=== PATIENT | male | born 1980 | race Caucasian/White ===

== ENCOUNTER → 2020-02-27 | Outpatient (CLI) | payer OTHER | LOC: M LABSMTC 10:42 | PROVIDERS: ATTEND Pediatrics | DX: Z20.822 Contact with and (suspected) exposure to COVID-19 (principal) ==

== ENCOUNTER → 2020-03-22 | Outpatient (CLI) | payer OTHER ==
--- NOTE | 2020-03-23 18:07 | SLEEPCENT ---
NOCTURNAL POLYSOMNOGRAPHY DATE: 03/22/2020 ORDERED BY: DERRICK Michelle Nocturnal polysomnography was performed for evaluation of sleep physiology in this patient with a history of excessive somnolence and nonrestorative sleep. 8 hours and 29 minutes of data were reviewed. There were 457 minutes of sleep identified. Sleep latency was mildly prolonged at 20 minutes. REM latency more so prolonged at 272 minutes. Sleep architecture was fairly well preserved. There were two REM cycles noted. Overall sleep efficiency was 90.7%. The electrocardiogram showed a sinus rhythm with an average heart rate of 78 beats per minute, rate range 66 to 102. EEG showed reasonably normal waveforms for wake and sleep. There were 339 respiratory events identified of 10 seconds in duration or greater for an apnea-hypopnea index of 44.5. The events were primarily obstructive though 27 mixed and central apneas were seen. The events were not exclusive to sleep stage. They were more frequent, but not exclusive to the supine posture and arousals from respiratory events occurred 30.1 times per hour. Oxygen desaturations were seen into the 70s. There was some limb activity, but arousals from limb events were few. IMPRESSION: Severe obstructive sleep apnea syndrome (G47.33), apnea-hypopnea index of 44.5. RECOMMENDATION: The patient should be encouraged to return to [facility]. In the interim, alcohol and sedative avoidance should be practiced and caution exercised during the operation of motor vehicles.
== END ==
LOC: M SLEEP 20:00
PROVIDERS: ATTEND Nurse Practitioner Family
DX: R06.83 Snoring (principal)

== ENCOUNTER → 2020-04-15 | Outpatient (CLI) | payer OTHER ==
--- NOTE | 2020-04-17 13:32 | SLEEPCENT ---
NOCTURNAL POLYSOMNOGRAPHY CPAP TITRATION DATE: 04/15/2020 ORDERED BY: DERRICK Michelle Nocturnal polysomnography was performed for the titration of pressure therapy in this patient with severe obstructive sleep apnea syndrome with apnea-hypopnea index of 44.5. For testing a ResMed F20 full face mask of medium size was used, 4 cm of water pressure were applied to the circuit, and the lights were extinguished. 8 hours and 50 minutes of data were reviewed. There were 462.5 minutes of sleep identified. Sleep latency was prolonged at 34.5 minutes. REM latency was prolonged at 259 minutes. Sleep architecture improved with optimal pressure therapy. Two long REM cycles were noted. Overall sleep efficiency was 88.7%. The electrocardiogram showed a sinus rhythm with an average heart rate of 65 beats per minute. EEG showed normal waveforms for wake and sleep. Respiratory events were fully palliated with CPAP at a pressure of 10. CPAP tolerance was good. IMPRESSION: Obstructive sleep apnea syndrome (G47.33). RECOMMENDATION: Nightly use of pressure therapy 10 cm of water. Seven Malcolm
== END ==
LOC: M SLEEP 20:00
PROVIDERS: ATTEND Nurse Practitioner Family
DX: G47.33 Obstructive sleep apnea (adult) (pediatric) (principal)

== ENCOUNTER → 2021-02-12 | Outpatient (REF) | LOC: M PLAIMG 14:45 | PROVIDERS: ATTEND Internal Medicine | DX: R07.9 Chest pain, unspecified (principal); M25.562 Pain in left knee ==